=== PATIENT | female | born 1960 | race Caucasian/White ===

== ENCOUNTER 2021-06-17 15:29 | Inpatient (IN) | payer MEDICARE, MEDICAID ==
[~2021-06-17] VITALS: Ht 170.2 cm; Wt 117.0 kg
[2021-06-17 16:35] VITALS: BP 152/85
[2021-06-17 17:09] LABS: BASO % 0.2 % (0.0-1.0); EOS # 0.2 10^3/uL (0.0-0.5); EOS % 1.1 % (0.0-3.0); HEMATOCRIT 38.2 % (36.0-47.0); HEMOGLOBIN 12.4 g/dl (12.0-15.5); LYMPH % 12.7 % (24.0-44.0); MEAN CORPUSCULAR HEMOGLOBIN 27.9 pg (27.0-33.0); MEAN CORPUSCULAR HGB CONC 32.5 g/dl (32.0-36.5); MEAN CORPUSCULAR VOLUME 85.8 fl (80.0-96.0); MONO % 6.2 % (2.0-8.0); NEUTROPHILS # 12.7 10^3/uL (1.5-8.5); NEUTROPHILS % 78.9 % (36.0-66.0); PLATELET COUNT, AUTOMATED 392 10^3/uL (150-450); RED BLOOD COUNT 4.45 10^6/uL (4.00-5.40); WHITE BLOOD COUNT 16.1 10^3/uL (4.0-10.0)
[2021-06-17 17:13] LABS: INR 1.01; PROTHROMBIN TIME 13.7 SECONDS (12.7-14.5)
[2021-06-17 17:20] LABS: ALBUMIN 3.1 GM/DL (3.2-5.2); BILIRUBIN,TOTAL 0.7 MG/DL (0.2-1.0); CALCIUM LEVEL 9.6 MG/DL (8.8-10.2); CREATININE FOR GFR 1.62 MG/DL (0.55-1.30); GLOMERULAR FILTRATION RATE 34.5 (>45); POTASSIUM SERUM 4.7 MEQ/L (3.5-5.1); TOTAL PROTEIN 7.4 GM/DL (6.4-8.2)
[2021-06-17] MEDS ORDERED: GLUCAGON INJ 1MG VIAL SC PRN (17:30)
[2021-06-17] MEDS: INSULIN LISPRO (NovoLOG) PER UNIT SC SCH ×2 (17:30→20:26)
[2021-06-17] MEDS ORDERED: VANCOMYCIN HCL 1,000 MG, VIAL MATE ADAPTER 1 EACH in NS 250 ML IV SCH (17:30)
[2021-06-17] MEDS ORDERED: DEXTROSE 50% 50 ML SYRINGE IV PRN (17:30)
[2021-06-17] MEDS ORDERED: PIPERACILLIN/TAZOBACTAM SOD 3.375 GM in D5W MINI-BAG PLUS 50 ML IV SCH (17:30)
[2021-06-17] MEDS ORDERED: NS 1,000 ML IV ONE (17:30)
[2021-06-17] MEDS ORDERED: GLUCOSE 4GM CHEW TABLET PO PRN (17:30)
[2021-06-17] MEDS ORDERED: CLIN-250 PO (17:31)
[2021-06-17] MEDS ORDERED: ATOR1TAB21 PO (17:31)
[2021-06-17] MEDS ORDERED: PHEN-239 PO (17:31)
[2021-06-17] MEDS ORDERED: LISI10TA22 PO (17:31)
[2021-06-17] MEDS ORDERED: FLON1SPR NARES (17:31)
[2021-06-17] MEDS ORDERED: BYDU2INJ7 SC (17:31)
[2021-06-17] MEDS ORDERED: LEXA1TAB PO (17:31)
[2021-06-17] MEDS ORDERED: TOUJ300I2 SC (17:31)
[2021-06-17] MEDS ORDERED: GABA600T4 PO (17:31)
[2021-06-17] MEDS ORDERED: JARD1TAB3 PO (17:31)
[2021-06-17] MEDS ORDERED: LEVO100T5 PO (17:31)
[2021-06-17] MEDS ORDERED: CIPR500T39 PO (17:31)
[2021-06-17] MEDS ORDERED: HOME MED LIST COMPLETE! XX SCH (17:35)
[2021-06-17] MEDS ORDERED: INSULIN LISPRO (NovoLOG) PER UNIT SC ONE (18:30)
[2021-06-17] MEDS: MEROPENEM INJ 1 GM in IV 1 EA IV SCH (18:47)
[2021-06-17] MEDS ORDERED: traMADol 50 MG TAB PO PRN (19:40)
[2021-06-17] MEDS ORDERED: VANCOMYCIN HCL 1,000 MG, VIAL MATE ADAPTER 1 EACH in NS 250 ML IV ONE (20:00)
[2021-06-17] MEDS: traMADol 50 MG TAB PO PRN (20:13)
[2021-06-17] MEDS: DOCUSATE SODIUM 100MG CAPSULE PO SCH (20:14)
[2021-06-17] MEDS ORDERED: MICONAZOLE-7 VAGINAL 2% CREAM 47.7GM PV SCH (21:00)
[2021-06-17] MEDS ORDERED: FLUCONAZOLE 50MG TABLET PO ONE (21:00)
[2021-06-17] MEDS ORDERED: LEVEMIR (INSULIN DETEMIR) 1 UNITS/0.01ML SC SCH (21:00)
[2021-06-17] MEDS ORDERED: ENOXAPARIN 40MG/0.4ML SYRINGE (J1650 PER 10MG) SC SCH (21:00)
[2021-06-17] MEDS ORDERED: VANCOMYCIN HCL 750 MG, VIAL MATE ADAPTER 1 EACH in NS 250 ML IV ONE (21:00)
[2021-06-17] MEDS ORDERED: GABAPENTIN 300 MG CAP PO ONE (21:00)
[2021-06-17] MEDS: NYSTATIN 100,000 UNITS/GM TOPICAL PWD 15 GM TOP SCH (21:49)
[2021-06-17 22:00] VITALS: BP 141/54
[2021-06-17] MEDS: oxyCODONE 5MG TAB PO PRN (23:17)
[2021-06-18] VITALS (8 sets, daily range): BP systolic 101–124; BP diastolic 62–78
[2021-06-18] MEDS: MEROPENEM INJ 1 GM in IV 1 EA IV SCH ×3 (01:42→21:41)
[2021-06-18] MEDS: ACETAMINOPHEN TAB 650MG DOSE (2X325MG) PO PRN ×3 (01:45→21:42)
[2021-06-18] MEDS: LEVOTHYROXINE 100MCG TABLET (0.1MG) PO SCH (05:40)
[2021-06-18 08:09] LABS: BASO % 0.2 % (0.0-1.0); EOS # 0.2 10^3/uL (0.0-0.5); EOS % 1.8 % (0.0-3.0); HEMATOCRIT 35.6 % (36.0-47.0); HEMOGLOBIN 11.7 g/dl (12.0-15.5); LYMPH % 16.6 % (24.0-44.0); MEAN CORPUSCULAR HEMOGLOBIN 28.3 pg (27.0-33.0); MEAN CORPUSCULAR HGB CONC 32.9 g/dl (32.0-36.5); MONO # 0.8 10^3/uL (0.0-0.8); NEUTROPHILS # 8.9 10^3/uL (1.5-8.5); NEUTROPHILS % 73.3 % (36.0-66.0); PLATELET COUNT, AUTOMATED 312 10^3/uL (150-450); RED BLOOD COUNT 4.14 10^6/uL (4.00-5.40); WHITE BLOOD COUNT 12.1 10^3/uL (4.0-10.0)
[2021-06-18 08:44] LABS: CALCIUM LEVEL 9.1 MG/DL (8.8-10.2); CREATININE FOR GFR 1.16 MG/DL (0.55-1.30); GLOMERULAR FILTRATION RATE 50.7 (>45); POTASSIUM SERUM 3.7 MEQ/L (3.5-5.1)
[2021-06-18] MEDS: LACTOBACILLUS ACIDOPHILUS CAP (BACID) PO SCH (09:08)
[2021-06-18] MEDS: DOCUSATE SODIUM 100MG CAPSULE PO SCH ×2 (09:08→21:42)
[2021-06-18] MEDS: INSULIN LISPRO (NovoLOG) PER UNIT SC SCH ×4 (09:08→21:00)
[2021-06-18] MEDS: ATORVASTATIN 20 MG TAB PO SCH (09:08)
[2021-06-18] MEDS: ESCITALOPRAM OXALATE 10 MG TAB (LEXAPRO) PO SCH (09:08)
[2021-06-18] MEDS: VANCOMYCIN HCL 750 MG, VIAL MATE ADAPTER 1 EACH in NS 250 ML IV SCH ×2 (09:10→10:54)
[2021-06-18] MEDS: NYSTATIN 100,000 UNITS/GM TOPICAL PWD 15 GM TOP SCH ×2 (09:11→21:43)
[2021-06-18] MEDS: traMADol 50 MG TAB PO PRN (09:31)
[2021-06-18] MEDS: oxyCODONE 5MG TAB PO PRN (12:26)
[2021-06-18] MEDS ORDERED: LIDOCAINE 1% MDV 20ML VIAL As Ordered ONE (12:55)
[2021-06-18] MEDS: GABAPENTIN 300 MG CAP PO SCH ×3 (14:17→21:42)
[2021-06-18] MEDS: NS 1,000 ML IV SCH ×2 (14:19→21:42)
[2021-06-18] MEDS ORDERED: propofoL 500 MG/50 ML VIAL As Ordered ONE (16:51)
[2021-06-18] MEDS ORDERED: MIDAZOLAM INJ 2MG/2ML VIAL (J2250 PER 1MG) As Ordered ONE (16:51)
[2021-06-18] MEDS ORDERED: fentaNYL 100 MCG/2 ML INJECTION As Ordered ONE (16:51)
[2021-06-18] MEDS ORDERED: LIDOCAINE 2% 100MG/5ML SDV (FOR ANES.) As Ordered ONE (16:51)
[2021-06-18] MEDS ORDERED: LIDOCAINE 2% MDV 20ML VIAL As Ordered ONE (16:53)
[2021-06-18] MEDS ORDERED: dexameTHASONE 4 MG/ML 1ML VIAL (J1100 PER 1MG) As Ordered ONE (16:53)
[2021-06-18] MEDS ORDERED: BUPIVACAINE HCL 0.5% 10ML VIAL As Ordered ONE (16:53)
[2021-06-18] MEDS ORDERED: TOBRAMYCIN 80MG/2ML VIAL As Ordered ONE (16:53)
[2021-06-18] MEDS: SODIUM CHLORIDE 0.9% INJ 10 ML SYR IV SCH (18:00)
[2021-06-18] MEDS ORDERED: LR 1,000 ML IV SCH (19:45)
[2021-06-18] MEDS ORDERED: ONDANSETRON 4MG/2ML VIAL IV PRN (19:45)
[2021-06-18] MEDS ORDERED: oxyCODONE 5MG TAB PO PRN (19:45)
[2021-06-18 19:56] LABS: VANCOMYCIN RANDOM 14.7 UG/ML
[2021-06-18] MEDS: LEVEMIR (INSULIN DETEMIR) 1 UNITS/0.01ML SC SCH (21:43)
[2021-06-19] VITALS (7 sets, daily range): BP systolic 90–115; BP diastolic 45–68
[2021-06-19] MEDS: SODIUM CHLORIDE 0.9% INJ 10 ML SYR IV SCH ×2 (05:02→17:55)
[2021-06-19] MEDS: LEVOTHYROXINE 100MCG TABLET (0.1MG) PO SCH (05:47)
[2021-06-19] MEDS: MEROPENEM INJ 1 GM in IV 1 EA IV SCH ×3 (05:47→21:11)
[2021-06-19] MEDS: traMADol 50 MG TAB PO PRN ×2 (05:48→17:10)
[2021-06-19 07:31] LABS: BASO % 0.2 % (0.0-1.0); EOS # 0.3 10^3/uL (0.0-0.5); HEMATOCRIT 30.8 % (36.0-47.0); HEMOGLOBIN 9.9 g/dl (12.0-15.5); LYMPH # 2.3 10^3/uL (1.5-5.0); LYMPH % 17.9 % (24.0-44.0); MEAN CORPUSCULAR HEMOGLOBIN 27.4 pg (27.0-33.0); MEAN CORPUSCULAR HGB CONC 32.1 g/dl (32.0-36.5); MEAN CORPUSCULAR VOLUME 85.3 fl (80.0-96.0); MONO % 7.9 % (2.0-8.0); NEUTROPHILS % 70.9 % (36.0-66.0); PLATELET COUNT, AUTOMATED 276 10^3/uL (150-450); RED BLOOD COUNT 3.61 10^6/uL (4.00-5.40); WHITE BLOOD COUNT 12.7 10^3/uL (4.0-10.0)
[2021-06-19 07:57] LABS: CALCIUM LEVEL 8.3 MG/DL (8.8-10.2); CREATININE FOR GFR 1.2 MG/DL (0.55-1.30); GLOMERULAR FILTRATION RATE 48.8 (>45); POTASSIUM SERUM 3.7 MEQ/L (3.5-5.1)
[2021-06-19] MEDS: DOCUSATE SODIUM 100MG CAPSULE PO SCH ×2 (08:21→21:11)
[2021-06-19] MEDS: LACTOBACILLUS ACIDOPHILUS CAP (BACID) PO SCH (08:21)
[2021-06-19] MEDS: GABAPENTIN 300 MG CAP PO SCH ×4 (08:21→21:11)
[2021-06-19] MEDS: ATORVASTATIN 20 MG TAB PO SCH (08:22)
[2021-06-19] MEDS: VANCOMYCIN HCL 750 MG, VIAL MATE ADAPTER 1 EACH in NS 250 ML IV SCH ×2 (08:22→11:41)
[2021-06-19] MEDS: ESCITALOPRAM OXALATE 10 MG TAB (LEXAPRO) PO SCH (08:22)
[2021-06-19] MEDS: INSULIN LISPRO (NovoLOG) PER UNIT SC SCH ×4 (08:24→20:46)
[2021-06-19] MEDS: ACETAMINOPHEN TAB 650MG DOSE (2X325MG) PO PRN ×2 (08:25→19:30)
[2021-06-19] MEDS: NYSTATIN 100,000 UNITS/GM TOPICAL PWD 15 GM TOP SCH ×2 (11:42→21:12)
[2021-06-19] MEDS: SODIUM CHLORIDE 0.9% INJ 10 ML SYR IV PRN ×2 (14:11→17:11)
[2021-06-19] MEDS: oxyCODONE 5MG TAB PO PRN (19:30)
[2021-06-19] MEDS: LEVEMIR (INSULIN DETEMIR) 1 UNITS/0.01ML SC SCH (21:11)
[2021-06-20] MEDS: traMADol 50 MG TAB PO PRN ×3 (02:36→21:17)
[2021-06-20] MEDS: MEROPENEM INJ 1 GM in IV 1 EA IV SCH ×3 (05:34→22:52)
[2021-06-20] MEDS: LEVOTHYROXINE 100MCG TABLET (0.1MG) PO SCH (05:34)
[2021-06-20] MEDS: SODIUM CHLORIDE 0.9% INJ 10 ML SYR IV SCH ×3 (05:36→17:45)
[2021-06-20 06:16] VITALS: BP 90/48
[2021-06-20 06:24] VITALS: BP 118/60
[2021-06-20 06:32] LABS: BASO % 0.3 % (0.0-1.0); EOS # 0.3 10^3/uL (0.0-0.5); EOS % 2.7 % (0.0-3.0); HEMATOCRIT 32.1 % (36.0-47.0); HEMOGLOBIN 10.2 g/dl (12.0-15.5); LYMPH # 3.3 10^3/uL (1.5-5.0); LYMPH % 28.3 % (24.0-44.0); MEAN CORPUSCULAR HEMOGLOBIN 27.8 pg (27.0-33.0); MEAN CORPUSCULAR HGB CONC 31.8 g/dl (32.0-36.5); MEAN CORPUSCULAR VOLUME 87.5 fl (80.0-96.0); MONO # 0.8 10^3/uL (0.0-0.8); MONO % 7.1 % (2.0-8.0); NEUTROPHILS % 60.3 % (36.0-66.0); PLATELET COUNT, AUTOMATED 287 10^3/uL (150-450); RED BLOOD COUNT 3.67 10^6/uL (4.00-5.40); WHITE BLOOD COUNT 11.7 10^3/uL (4.0-10.0)
[2021-06-20 06:53] LABS: BLOOD UREA NITROGEN 12 MG/DL (7-18); CALCIUM LEVEL 8.4 MG/DL (8.8-10.2); CARBON DIOXIDE LEVEL 24 MEQ/L (21-32); CHLORIDE LEVEL 107 MEQ/L (98-107); CREATININE FOR GFR 0.96 MG/DL (0.55-1.30); GLOMERULAR FILTRATION RATE > 60.0 (>45); GLUCOSE, FASTING 145 MG/DL (70-100); POTASSIUM SERUM 3.3 MEQ/L (3.5-5.1); SODIUM LEVEL 140 MEQ/L (136-145)
[2021-06-20 08:30] LABS: VANCOMYCIN RANDOM 14.4 UG/ML
[2021-06-20] MEDS ORDERED: POTASSIUM CHLORIDE 10MEQ SR TABLET PO ONE (08:30)
[2021-06-20] MEDS: DOCUSATE SODIUM 100MG CAPSULE PO SCH ×2 (09:04→21:16)
[2021-06-20] MEDS: ESCITALOPRAM OXALATE 10 MG TAB (LEXAPRO) PO SCH (09:04)
[2021-06-20] MEDS: LACTOBACILLUS ACIDOPHILUS CAP (BACID) PO SCH (09:04)
[2021-06-20] MEDS: GABAPENTIN 300 MG CAP PO SCH ×4 (09:05→21:16)
[2021-06-20] MEDS: ATORVASTATIN 20 MG TAB PO SCH (09:05)
[2021-06-20] MEDS: NYSTATIN 100,000 UNITS/GM TOPICAL PWD 15 GM TOP SCH ×2 (09:06→21:18)
[2021-06-20] MEDS: INSULIN LISPRO (NovoLOG) PER UNIT SC SCH ×4 (09:07→21:17)
[2021-06-20] MEDS: VANCOMYCIN HCL 1,000 MG, VIAL MATE ADAPTER 1 EACH in NS 250 ML IV SCH ×2 (09:17→21:18)
[2021-06-20] MEDS: SODIUM CHLORIDE 0.9% INJ 10 ML SYR IV PRN ×3 (10:57→17:34)
[2021-06-20 14:09] VITALS: BP 120/72
[2021-06-20] MEDS: oxyCODONE 5MG TAB PO PRN (15:14)
[2021-06-20] MEDS: ACETAMINOPHEN TAB 650MG DOSE (2X325MG) PO PRN (17:13)
[2021-06-20 20:44] VITALS: BP 123/95
[2021-06-20] MEDS ORDERED: FLUCONAZOLE 50MG TABLET PO ONE (21:00)
[2021-06-20] MEDS: LEVEMIR (INSULIN DETEMIR) 1 UNITS/0.01ML SC SCH (21:18)
[2021-06-21] MEDS: MEROPENEM INJ 1 GM in IV 1 EA IV SCH ×3 (05:04→21:59)
[2021-06-21] MEDS: LEVOTHYROXINE 100MCG TABLET (0.1MG) PO SCH (05:59)
[2021-06-21] MEDS: SODIUM CHLORIDE 0.9% INJ 10 ML SYR IV SCH ×2 (06:00→16:50)
[2021-06-21 06:12] VITALS: BP 129/67
[2021-06-21 06:28] LABS: BASO % 0.4 % (0.0-1.0); EOS # 0.3 10^3/uL (0.0-0.5); EOS % 2.8 % (0.0-3.0); HEMATOCRIT 31.4 % (36.0-47.0); HEMOGLOBIN 9.8 g/dl (12.0-15.5); LYMPH # 2.8 10^3/uL (1.5-5.0); LYMPH % 29.8 % (24.0-44.0); MEAN CORPUSCULAR HEMOGLOBIN 27.6 pg (27.0-33.0); MEAN CORPUSCULAR HGB CONC 31.2 g/dl (32.0-36.5); MEAN CORPUSCULAR VOLUME 88.5 fl (80.0-96.0); MONO # 0.6 10^3/uL (0.0-0.8); MONO % 6.2 % (2.0-8.0); NEUTROPHILS # 5.7 10^3/uL (1.5-8.5); NEUTROPHILS % 59.4 % (36.0-66.0); PLATELET COUNT, AUTOMATED 299 10^3/uL (150-450); RED BLOOD COUNT 3.55 10^6/uL (4.00-5.40); WHITE BLOOD COUNT 9.5 10^3/uL (4.0-10.0)
[2021-06-21 06:53] LABS: BLOOD UREA NITROGEN 9 MG/DL (7-18); C REACTIVE PROTEIN QUANTITATIV 7.24 MG/DL (0.00-0.30); CALCIUM LEVEL 7.9 MG/DL (8.8-10.2); CARBON DIOXIDE LEVEL 28 MEQ/L (21-32); CHLORIDE LEVEL 111 MEQ/L (98-107); CREATININE FOR GFR 0.87 MG/DL (0.55-1.30); GLOMERULAR FILTRATION RATE > 60.0 (>45); GLUCOSE, FASTING 169 MG/DL (70-100); SODIUM LEVEL 144 MEQ/L (136-145)
[2021-06-21] MEDS: ATORVASTATIN 20 MG TAB PO SCH (08:13)
[2021-06-21] MEDS: ESCITALOPRAM OXALATE 10 MG TAB (LEXAPRO) PO SCH (08:14)
[2021-06-21] MEDS: LACTOBACILLUS ACIDOPHILUS CAP (BACID) PO SCH (08:14)
[2021-06-21] MEDS: NYSTATIN 100,000 UNITS/GM TOPICAL PWD 15 GM TOP SCH ×2 (08:14→21:58)
[2021-06-21] MEDS: DOCUSATE SODIUM 100MG CAPSULE PO SCH ×2 (08:44→21:59)
[2021-06-21] MEDS: GABAPENTIN 300 MG CAP PO SCH ×4 (08:44→21:59)
[2021-06-21] MEDS: INSULIN LISPRO (NovoLOG) PER UNIT SC SCH ×4 (08:45→21:00)
[2021-06-21] MEDS: LEVEMIR (INSULIN DETEMIR) 1 UNITS/0.01ML SC SCH ×2 (08:46→21:57)
[2021-06-21 09:34] VITALS: BP 130/60
[2021-06-21] MEDS: traMADol 50 MG TAB PO PRN (09:49)
[2021-06-21] MEDS: VANCOMYCIN HCL 1,000 MG, VIAL MATE ADAPTER 1 EACH in NS 250 ML IV SCH (13:15)
[2021-06-21 14:24] VITALS: BP 116/60
[2021-06-21] MEDS: SODIUM CHLORIDE 0.9% INJ 10 ML SYR IV PRN (15:20)
[2021-06-21] MEDS: ACETAMINOPHEN TAB 650MG DOSE (2X325MG) PO PRN (16:46)
[2021-06-21] MEDS ORDERED: CALCIUM CARBONATE 500 MG CHEW U/D PO PRN (18:10)
[2021-06-21] MEDS: PANTOPRAZOLE 40MG TAB (PROTONIX) PO SCH (21:59)
[2021-06-21 22:00] VITALS: BP 115/61
[2021-06-22] MEDS: VANCOMYCIN HCL 1,000 MG, VIAL MATE ADAPTER 1 EACH in NS 250 ML IV SCH (02:17)
[2021-06-22] MEDS: MEROPENEM INJ 1 GM in IV 1 EA IV SCH ×3 (05:53→21:29)
[2021-06-22] MEDS: LEVOTHYROXINE 100MCG TABLET (0.1MG) PO SCH (05:53)
[2021-06-22] MEDS: SODIUM CHLORIDE 0.9% INJ 10 ML SYR IV SCH ×2 (05:55→17:12)
[2021-06-22 06:00] VITALS: BP 116/65
[2021-06-22 07:05] LABS: BASO % 0.4 % (0.0-1.0); EOS # 0.3 10^3/uL (0.0-0.5); EOS % 2.5 % (0.0-3.0); HEMATOCRIT 33.7 % (36.0-47.0); HEMOGLOBIN 10.4 g/dl (12.0-15.5); LYMPH # 3.9 10^3/uL (1.5-5.0); LYMPH % 34.7 % (24.0-44.0); MEAN CORPUSCULAR HEMOGLOBIN 27.1 pg (27.0-33.0); MEAN CORPUSCULAR HGB CONC 30.9 g/dl (32.0-36.5); MEAN CORPUSCULAR VOLUME 87.8 fl (80.0-96.0); MONO # 0.7 10^3/uL (0.0-0.8); MONO % 6.6 % (2.0-8.0); PLATELET COUNT, AUTOMATED 385 10^3/uL (150-450); RED BLOOD COUNT 3.84 10^6/uL (4.00-5.40); WHITE BLOOD COUNT 11.1 10^3/uL (4.0-10.0)
[2021-06-22 07:25] LABS: BLOOD UREA NITROGEN 6 MG/DL (7-18); C REACTIVE PROTEIN QUANTITATIV 5.04 MG/DL (0.00-0.30); CALCIUM LEVEL 8.5 MG/DL (8.8-10.2); CARBON DIOXIDE LEVEL 26 MEQ/L (21-32); CHLORIDE LEVEL 110 MEQ/L (98-107); CREATININE FOR GFR 0.84 MG/DL (0.55-1.30); GLOMERULAR FILTRATION RATE > 60.0 (>45); GLUCOSE, FASTING 88 MG/DL (70-100); SODIUM LEVEL 142 MEQ/L (136-145)
[2021-06-22] MEDS: INSULIN LISPRO (NovoLOG) PER UNIT SC SCH ×4 (07:30→21:28)
[2021-06-22] MEDS: LACTOBACILLUS ACIDOPHILUS CAP (BACID) PO SCH (08:23)
[2021-06-22] MEDS: DOCUSATE SODIUM 100MG CAPSULE PO SCH ×2 (08:23→21:00)
[2021-06-22] MEDS: GABAPENTIN 300 MG CAP PO SCH ×4 (08:23→21:29)
[2021-06-22] MEDS: ESCITALOPRAM OXALATE 10 MG TAB (LEXAPRO) PO SCH (08:24)
[2021-06-22] MEDS: NYSTATIN 100,000 UNITS/GM TOPICAL PWD 15 GM TOP SCH ×2 (08:24→21:29)
[2021-06-22] MEDS: ATORVASTATIN 20 MG TAB PO SCH (08:24)
[2021-06-22] MEDS: LEVEMIR (INSULIN DETEMIR) 1 UNITS/0.01ML SC SCH ×2 (08:48→21:28)
[2021-06-22] MEDS ORDERED: FLUCONAZOLE 50MG TABLET PO SCH (09:00)
[2021-06-22] MEDS ORDERED: VANCOMYCIN HCL 750 MG, VIAL MATE ADAPTER 1 EACH in NS 250 ML IV SCH (13:00)
[2021-06-22 14:00] VITALS: BP 106/56
[2021-06-22] MEDS: oxyCODONE 5MG TAB PO PRN ×2 (15:11→21:29)
[2021-06-22] MEDS: VANCOMYCIN HCL 750 MG, VIAL MATE ADAPTER 1 EACH in NS 250 ML IV SCH (15:37)
[2021-06-22] MEDS: PANTOPRAZOLE 40MG TAB (PROTONIX) PO SCH (21:28)
[2021-06-22 21:58] VITALS: BP 122/52
[2021-06-23] MEDS: oxyCODONE 5MG TAB PO PRN (03:33)
[2021-06-23] MEDS: VANCOMYCIN HCL 750 MG, VIAL MATE ADAPTER 1 EACH in NS 250 ML IV SCH ×2 (03:33→14:51)
[2021-06-23] MEDS: MEROPENEM INJ 1 GM in IV 1 EA IV SCH ×2 (05:42→13:03)
[2021-06-23] MEDS: LEVOTHYROXINE 100MCG TABLET (0.1MG) PO SCH (05:42)
[2021-06-23] MEDS: SODIUM CHLORIDE 0.9% INJ 10 ML SYR IV SCH ×2 (05:43→17:29)
[2021-06-23 05:59] LABS: BASO % 0.4 % (0.0-1.0); EOS # 0.2 10^3/uL (0.0-0.5); EOS % 2.4 % (0.0-3.0); HEMATOCRIT 31.7 % (36.0-47.0); MEAN CORPUSCULAR HEMOGLOBIN 27.8 pg (27.0-33.0); MEAN CORPUSCULAR HGB CONC 31.5 g/dl (32.0-36.5); MEAN CORPUSCULAR VOLUME 88.1 fl (80.0-96.0); MONO # 0.6 10^3/uL (0.0-0.8); MONO % 6.6 % (2.0-8.0); NEUTROPHILS # 5.6 10^3/uL (1.5-8.5); NEUTROPHILS % 58.2 % (36.0-66.0); PLATELET COUNT, AUTOMATED 339 10^3/uL (150-450); WHITE BLOOD COUNT 9.6 10^3/uL (4.0-10.0)
[2021-06-23 06:00] VITALS: BP 132/78
[2021-06-23 06:36] LABS: C REACTIVE PROTEIN QUANTITATIV 3.94 MG/DL (0.00-0.30); CALCIUM LEVEL 8.2 MG/DL (8.8-10.2); CREATININE FOR GFR 1.01 MG/DL (0.55-1.30); GLOMERULAR FILTRATION RATE 59.5 (>45); POTASSIUM SERUM 4.4 MEQ/L (3.5-5.1)
[2021-06-23] MEDS: LACTOBACILLUS ACIDOPHILUS CAP (BACID) PO SCH (08:30)
[2021-06-23] MEDS: LEVEMIR (INSULIN DETEMIR) 1 UNITS/0.01ML SC SCH ×2 (08:31→21:16)
[2021-06-23] MEDS: DOCUSATE SODIUM 100MG CAPSULE PO SCH ×2 (08:31→21:17)
[2021-06-23] MEDS: ATORVASTATIN 20 MG TAB PO SCH (08:32)
[2021-06-23] MEDS: GABAPENTIN 300 MG CAP PO SCH ×4 (08:32→21:17)
[2021-06-23] MEDS: ESCITALOPRAM OXALATE 10 MG TAB (LEXAPRO) PO SCH (08:32)
[2021-06-23] MEDS: INSULIN LISPRO (NovoLOG) PER UNIT SC SCH ×4 (08:32→21:00)
[2021-06-23] MEDS: FLUCONAZOLE 100 MG TAB PO SCH (08:32)
[2021-06-23] MEDS: NYSTATIN 100,000 UNITS/GM TOPICAL PWD 15 GM TOP SCH ×2 (08:33→21:19)
[2021-06-23] MEDS: traMADol 50 MG TAB PO PRN ×2 (08:46→17:40)
[2021-06-23 14:00] VITALS: BP 113/50
[2021-06-23 20:45] VITALS: BP 113/52
[2021-06-23] MEDS: PANTOPRAZOLE 40MG TAB (PROTONIX) PO SCH (21:16)
[2021-06-24] MEDS: VANCOMYCIN HCL 750 MG, VIAL MATE ADAPTER 1 EACH in NS 250 ML IV SCH ×2 (03:21→15:18)
[2021-06-24 06:02] VITALS: BP 116/57
[2021-06-24 06:15] LABS: BASO % 0.4 % (0.0-1.0); EOS # 0.3 10^3/uL (0.0-0.5); EOS % 2.7 % (0.0-3.0); HEMATOCRIT 32.3 % (36.0-47.0); HEMOGLOBIN 10.3 g/dl (12.0-15.5); LYMPH # 3.1 10^3/uL (1.5-5.0); LYMPH % 33.4 % (24.0-44.0); MEAN CORPUSCULAR HGB CONC 31.9 g/dl (32.0-36.5); MEAN CORPUSCULAR VOLUME 87.8 fl (80.0-96.0); MONO # 0.7 10^3/uL (0.0-0.8); MONO % 7.1 % (2.0-8.0); NEUTROPHILS % 54.4 % (36.0-66.0); PLATELET COUNT, AUTOMATED 368 10^3/uL (150-450); RED BLOOD COUNT 3.68 10^6/uL (4.00-5.40); WHITE BLOOD COUNT 9.1 10^3/uL (4.0-10.0)
[2021-06-24 06:24] LABS: BLOOD UREA NITROGEN 7 MG/DL (7-18); C REACTIVE PROTEIN QUANTITATIV 3.62 MG/DL (0.00-0.30); CALCIUM LEVEL 8.5 MG/DL (8.8-10.2); CARBON DIOXIDE LEVEL 31 MEQ/L (21-32); CHLORIDE LEVEL 107 MEQ/L (98-107); CREATININE FOR GFR 0.99 MG/DL (0.55-1.30); GLOMERULAR FILTRATION RATE > 60.0 (>45); GLUCOSE, FASTING 101 MG/DL (70-100); SODIUM LEVEL 144 MEQ/L (136-145)
[2021-06-24] MEDS: SODIUM CHLORIDE 0.9% INJ 10 ML SYR IV SCH ×2 (06:38→16:48)
[2021-06-24] MEDS: LEVOTHYROXINE 100MCG TABLET (0.1MG) PO SCH (06:38)
[2021-06-24] MEDS: oxyCODONE 5MG TAB PO PRN ×3 (06:49→21:02)
[2021-06-24] MEDS: INSULIN LISPRO (NovoLOG) PER UNIT SC SCH ×4 (07:30→21:00)
[2021-06-24 08:11] VITALS: BP 144/70
[2021-06-24] MEDS: DOCUSATE SODIUM 100MG CAPSULE PO SCH ×2 (08:36→21:01)
[2021-06-24] MEDS: GABAPENTIN 300 MG CAP PO SCH ×4 (08:37→21:02)
[2021-06-24] MEDS: ATORVASTATIN 20 MG TAB PO SCH (08:39)
[2021-06-24] MEDS: FLUCONAZOLE 100 MG TAB PO SCH (08:43)
[2021-06-24] MEDS: NYSTATIN 100,000 UNITS/GM TOPICAL PWD 15 GM TOP SCH ×2 (08:50→21:01)
[2021-06-24] MEDS: LEVEMIR (INSULIN DETEMIR) 1 UNITS/0.01ML SC SCH ×2 (09:00→21:32)
[2021-06-24] MEDS: ESCITALOPRAM OXALATE 10 MG TAB (LEXAPRO) PO SCH (09:14)
[2021-06-24 09:21] VITALS: BP 144/70
[2021-06-24] MEDS: LACTOBACILLUS ACIDOPHILUS CAP (BACID) PO SCH (09:29)
[2021-06-24 14:00] VITALS: BP 133/62
[2021-06-24] MEDS: ACETAMINOPHEN TAB 650MG DOSE (2X325MG) PO PRN ×2 (18:28→21:01)
[2021-06-24] MEDS: PANTOPRAZOLE 40MG TAB (PROTONIX) PO SCH (21:02)
[2021-06-24 22:00] VITALS: BP 120/58
[2021-06-25] MEDS: VANCOMYCIN HCL 750 MG, VIAL MATE ADAPTER 1 EACH in NS 250 ML IV SCH ×2 (02:53→15:13)
[2021-06-25 06:00] VITALS: BP 139/70
[2021-06-25] MEDS: LEVOTHYROXINE 100MCG TABLET (0.1MG) PO SCH (06:14)
[2021-06-25] MEDS: SODIUM CHLORIDE 0.9% INJ 10 ML SYR IV SCH ×2 (06:14→16:49)
[2021-06-25 08:05] LABS: HEMATOCRIT 31.2 % (36.0-47.0); MEAN CORPUSCULAR HEMOGLOBIN 28.1 pg (27.0-33.0); MEAN CORPUSCULAR HGB CONC 32.1 g/dl (32.0-36.5); MEAN CORPUSCULAR VOLUME 87.6 fl (80.0-96.0); PLATELET COUNT, AUTOMATED 359 10^3/uL (150-450); RED BLOOD COUNT 3.56 10^6/uL (4.00-5.40); WHITE BLOOD COUNT 8.1 10^3/uL (4.0-10.0)
[2021-06-25] MEDS: ESCITALOPRAM OXALATE 10 MG TAB (LEXAPRO) PO SCH (08:13)
[2021-06-25] MEDS: GABAPENTIN 300 MG CAP PO SCH ×4 (08:15→20:39)
[2021-06-25] MEDS: LACTOBACILLUS ACIDOPHILUS CAP (BACID) PO SCH (08:15)
[2021-06-25] MEDS: ATORVASTATIN 20 MG TAB PO SCH (08:17)
[2021-06-25] MEDS: DOCUSATE SODIUM 100MG CAPSULE PO SCH ×2 (08:17→20:39)
[2021-06-25] MEDS: INSULIN LISPRO (NovoLOG) PER UNIT SC SCH ×4 (08:20→20:41)
[2021-06-25] MEDS: LEVEMIR (INSULIN DETEMIR) 1 UNITS/0.01ML SC SCH ×2 (08:21→20:41)
[2021-06-25 08:28] LABS: BLOOD UREA NITROGEN 8 MG/DL (7-18); CALCIUM LEVEL 8.3 MG/DL (8.8-10.2); CARBON DIOXIDE LEVEL 33 MEQ/L (21-32); CHLORIDE LEVEL 105 MEQ/L (98-107); CREATININE FOR GFR 0.97 MG/DL (0.55-1.30); GLOMERULAR FILTRATION RATE > 60.0 (>45); GLUCOSE, FASTING 103 MG/DL (70-100); POTASSIUM SERUM 3.7 MEQ/L (3.5-5.1); SODIUM LEVEL 142 MEQ/L (136-145)
[2021-06-25] MEDS: FLUCONAZOLE 100 MG TAB PO SCH (08:28)
[2021-06-25] MEDS: NYSTATIN 100,000 UNITS/GM TOPICAL PWD 15 GM TOP SCH ×2 (10:35→20:42)
[2021-06-25] MEDS: traMADol 50 MG TAB PO PRN ×2 (12:35→20:40)
[2021-06-25] MEDS: ACETAMINOPHEN TAB 650MG DOSE (2X325MG) PO PRN (12:36)
[2021-06-25 14:00] VITALS: BP 133/67
[2021-06-25] MEDS: PANTOPRAZOLE 40MG TAB (PROTONIX) PO SCH (20:40)
[2021-06-25 22:00] VITALS: BP 136/63
[2021-06-26] MEDS: VANCOMYCIN HCL 750 MG, VIAL MATE ADAPTER 1 EACH in NS 250 ML IV SCH (03:21)
[2021-06-26] MEDS: LEVOTHYROXINE 100MCG TABLET (0.1MG) PO SCH (05:08)
[2021-06-26] MEDS: SODIUM CHLORIDE 0.9% INJ 10 ML SYR IV SCH ×2 (05:08→17:09)
[2021-06-26 06:00] VITALS: BP 133/63
[2021-06-26 06:21] LABS: HEMATOCRIT 31.6 % (36.0-47.0); HEMOGLOBIN 10.1 g/dl (12.0-15.5); MEAN CORPUSCULAR HEMOGLOBIN 27.7 pg (27.0-33.0); MEAN CORPUSCULAR VOLUME 86.6 fl (80.0-96.0); PLATELET COUNT, AUTOMATED 400 10^3/uL (150-450); RED BLOOD COUNT 3.65 10^6/uL (4.00-5.40)
[2021-06-26 06:46] LABS: CALCIUM LEVEL 8.4 MG/DL (8.8-10.2); CREATININE FOR GFR 1.01 MG/DL (0.55-1.30); GLOMERULAR FILTRATION RATE 59.5 (>45); POTASSIUM SERUM 4.1 MEQ/L (3.5-5.1)
[2021-06-26] MEDS: ATORVASTATIN 20 MG TAB PO SCH (07:42)
[2021-06-26] MEDS: ESCITALOPRAM OXALATE 10 MG TAB (LEXAPRO) PO SCH (07:42)
[2021-06-26] MEDS: GABAPENTIN 300 MG CAP PO SCH ×4 (07:43→20:58)
[2021-06-26] MEDS: FLUCONAZOLE 100 MG TAB PO SCH (07:43)
[2021-06-26] MEDS: DOCUSATE SODIUM 100MG CAPSULE PO SCH ×2 (07:44→20:58)
[2021-06-26] MEDS: LEVEMIR (INSULIN DETEMIR) 1 UNITS/0.01ML SC SCH ×2 (07:44→20:58)
[2021-06-26] MEDS: LACTOBACILLUS ACIDOPHILUS CAP (BACID) PO SCH (07:44)
[2021-06-26] MEDS: INSULIN LISPRO (NovoLOG) PER UNIT SC SCH ×4 (07:45→20:59)
[2021-06-26] MEDS: NYSTATIN 100,000 UNITS/GM TOPICAL PWD 15 GM TOP SCH ×2 (07:50→20:59)
[2021-06-26 08:02] LABS: C REACTIVE PROTEIN QUANTITATIV 1.93 MG/DL (0.00-0.30)
[2021-06-26] MEDS: ACETAMINOPHEN TAB 650MG DOSE (2X325MG) PO PRN ×2 (09:24→17:05)
[2021-06-26] MEDS: traMADol 50 MG TAB PO PRN (09:24)
[2021-06-26 14:00] VITALS: BP 147/73
[2021-06-26] MEDS: oxyCODONE 5MG TAB PO PRN (15:27)
[2021-06-26 16:00] VITALS: BP 137/74
[2021-06-26 20:11] VITALS: BP 136/73
[2021-06-26] MEDS: LINEZOLID 600MG TABLET (ZYVOX) PO SCH (20:58)
[2021-06-26] MEDS: PANTOPRAZOLE 40MG TAB (PROTONIX) PO SCH (20:58)
[2021-06-27] MEDS: SODIUM CHLORIDE 0.9% INJ 10 ML SYR IV SCH ×2 (05:51→17:40)
[2021-06-27] MEDS: LEVOTHYROXINE 100MCG TABLET (0.1MG) PO SCH (05:51)
[2021-06-27 06:00] VITALS: BP 129/72
[2021-06-27 06:48] LABS: HEMATOCRIT 32.8 % (36.0-47.0); HEMOGLOBIN 10.2 g/dl (12.0-15.5); MEAN CORPUSCULAR HEMOGLOBIN 27.6 pg (27.0-33.0); MEAN CORPUSCULAR HGB CONC 31.1 g/dl (32.0-36.5); MEAN CORPUSCULAR VOLUME 88.9 fl (80.0-96.0); PLATELET COUNT, AUTOMATED 401 10^3/uL (150-450); RED BLOOD COUNT 3.69 10^6/uL (4.00-5.40); WHITE BLOOD COUNT 8.6 10^3/uL (4.0-10.0)
[2021-06-27 07:23] LABS: CALCIUM LEVEL 8.5 MG/DL (8.8-10.2); CREATININE FOR GFR 1.04 MG/DL (0.55-1.30); GLOMERULAR FILTRATION RATE 57.5 (>45); POTASSIUM SERUM 3.9 MEQ/L (3.5-5.1)
[2021-06-27] MEDS: INSULIN LISPRO (NovoLOG) PER UNIT SC SCH ×4 (07:30→20:16)
[2021-06-27] MEDS: LEVEMIR (INSULIN DETEMIR) 1 UNITS/0.01ML SC SCH ×2 (08:02→20:33)
[2021-06-27] MEDS: GABAPENTIN 300 MG CAP PO SCH ×4 (08:13→20:33)
[2021-06-27] MEDS: DOCUSATE SODIUM 100MG CAPSULE PO SCH ×2 (08:13→20:33)
[2021-06-27] MEDS: LACTOBACILLUS ACIDOPHILUS CAP (BACID) PO SCH (08:13)
[2021-06-27] MEDS: ATORVASTATIN 20 MG TAB PO SCH (08:13)
[2021-06-27] MEDS: LINEZOLID 600MG TABLET (ZYVOX) PO SCH ×2 (08:13→20:33)
[2021-06-27] MEDS: FLUCONAZOLE 100 MG TAB PO SCH (08:14)
[2021-06-27] MEDS: NYSTATIN 100,000 UNITS/GM TOPICAL PWD 15 GM TOP SCH ×2 (08:14→20:34)
[2021-06-27] MEDS: oxyCODONE 5MG TAB PO PRN ×3 (08:30→20:33)
[2021-06-27] MEDS ORDERED: ESCITALOPRAM OXALATE 10 MG TAB (LEXAPRO) PO SCH (12:00)
[2021-06-27] MEDS: ESCITALOPRAM OXALATE 5MG TABLET (LEXAPRO) PO SCH (12:47)
[2021-06-27 15:08] VITALS: BP 124/63
[2021-06-27] MEDS: ACETAMINOPHEN TAB 650MG DOSE (2X325MG) PO PRN (16:13)
[2021-06-27] MEDS: PANTOPRAZOLE 40MG TAB (PROTONIX) PO SCH (20:33)
[2021-06-27 21:31] VITALS: BP 123/63
[2021-06-27 21:52] VITALS: BP 123/63
[2021-06-28] MEDS: LEVOTHYROXINE 100MCG TABLET (0.1MG) PO SCH (05:45)
[2021-06-28] MEDS: SODIUM CHLORIDE 0.9% INJ 10 ML SYR IV SCH ×2 (05:46→17:13)
[2021-06-28 06:00] VITALS: BP 127/71
[2021-06-28 08:18] LABS: HEMATOCRIT 32.2 % (36.0-47.0); HEMOGLOBIN 10.1 g/dl (12.0-15.5); MEAN CORPUSCULAR HEMOGLOBIN 28.2 pg (27.0-33.0); MEAN CORPUSCULAR HGB CONC 31.4 g/dl (32.0-36.5); MEAN CORPUSCULAR VOLUME 89.9 fl (80.0-96.0); PLATELET COUNT, AUTOMATED 380 10^3/uL (150-450); RED BLOOD COUNT 3.58 10^6/uL (4.00-5.40); WHITE BLOOD COUNT 8.6 10^3/uL (4.0-10.0)
[2021-06-28] MEDS: DOCUSATE SODIUM 100MG CAPSULE PO SCH ×2 (08:41→21:27)
[2021-06-28] MEDS: ATORVASTATIN 20 MG TAB PO SCH (08:41)
[2021-06-28] MEDS: LACTOBACILLUS ACIDOPHILUS CAP (BACID) PO SCH (08:41)
[2021-06-28] MEDS: ACETAMINOPHEN TAB 650MG DOSE (2X325MG) PO PRN (08:42)
[2021-06-28] MEDS: GABAPENTIN 300 MG CAP PO SCH ×4 (08:42→21:27)
[2021-06-28] MEDS: FLUCONAZOLE 100 MG TAB PO SCH (08:42)
[2021-06-28] MEDS: INSULIN LISPRO (NovoLOG) PER UNIT SC SCH ×4 (08:42→19:59)
[2021-06-28] MEDS: LINEZOLID 600MG TABLET (ZYVOX) PO SCH ×2 (08:42→21:27)
[2021-06-28 08:43] LABS: CALCIUM LEVEL 8.6 MG/DL (8.8-10.2); CREATININE FOR GFR 1.2 MG/DL (0.55-1.30); GLOMERULAR FILTRATION RATE 48.8 (>45); POTASSIUM SERUM 4.2 MEQ/L (3.5-5.1)
[2021-06-28] MEDS: NYSTATIN 100,000 UNITS/GM TOPICAL PWD 15 GM TOP SCH ×2 (08:43→21:28)
[2021-06-28] MEDS: LEVEMIR (INSULIN DETEMIR) 1 UNITS/0.01ML SC SCH ×2 (08:43→21:28)
[2021-06-28] MEDS: ESCITALOPRAM OXALATE 5MG TABLET (LEXAPRO) PO SCH (12:44)
[2021-06-28 14:00] VITALS: BP 131/77
[2021-06-28] MEDS: oxyCODONE 5MG TAB PO PRN (16:38)
[2021-06-28] MEDS: PANTOPRAZOLE 40MG TAB (PROTONIX) PO SCH (21:27)
[2021-06-28 22:00] VITALS: BP 131/70
[2021-06-29] MEDS: LEVOTHYROXINE 100MCG TABLET (0.1MG) PO SCH (05:50)
[2021-06-29] MEDS: SODIUM CHLORIDE 0.9% INJ 10 ML SYR IV SCH ×2 (05:51→17:10)
[2021-06-29] MEDS: oxyCODONE 5MG TAB PO PRN ×2 (05:51→17:12)
[2021-06-29 06:00] VITALS: BP 131/68
[2021-06-29] MEDS: ATORVASTATIN 20 MG TAB PO SCH (07:57)
[2021-06-29] MEDS: LACTOBACILLUS ACIDOPHILUS CAP (BACID) PO SCH (07:57)
[2021-06-29] MEDS: FLUCONAZOLE 100 MG TAB PO SCH (07:57)
[2021-06-29] MEDS: DOCUSATE SODIUM 100MG CAPSULE PO SCH ×2 (07:57→20:14)
[2021-06-29] MEDS: GABAPENTIN 300 MG CAP PO SCH ×4 (07:57→20:14)
[2021-06-29] MEDS: INSULIN LISPRO (NovoLOG) PER UNIT SC SCH ×4 (07:58→20:15)
[2021-06-29] MEDS: LEVEMIR (INSULIN DETEMIR) 1 UNITS/0.01ML SC SCH ×2 (07:58→20:15)
[2021-06-29] MEDS: LINEZOLID 600MG TABLET (ZYVOX) PO SCH ×2 (07:58→20:14)
[2021-06-29] MEDS: NYSTATIN 100,000 UNITS/GM TOPICAL PWD 15 GM TOP SCH ×2 (07:59→20:15)
[2021-06-29 08:46] LABS: HEMATOCRIT 31.3 % (36.0-47.0); HEMOGLOBIN 9.8 g/dl (12.0-15.5); MEAN CORPUSCULAR HEMOGLOBIN 28.2 pg (27.0-33.0); MEAN CORPUSCULAR HGB CONC 31.3 g/dl (32.0-36.5); MEAN CORPUSCULAR VOLUME 90.2 fl (80.0-96.0); PLATELET COUNT, AUTOMATED 383 10^3/uL (150-450); RED BLOOD COUNT 3.47 10^6/uL (4.00-5.40); WHITE BLOOD COUNT 9.5 10^3/uL (4.0-10.0)
[2021-06-29 09:06] LABS: CALCIUM LEVEL 9.1 MG/DL (8.8-10.2); CREATININE FOR GFR 1.28 MG/DL (0.55-1.30); GLOMERULAR FILTRATION RATE 45.3 (>45); POTASSIUM SERUM 4.1 MEQ/L (3.5-5.1)
[2021-06-29] MEDS: ESCITALOPRAM OXALATE 5MG TABLET (LEXAPRO) PO SCH (12:04)
[2021-06-29 14:00] VITALS: BP 115/87
[2021-06-29] MEDS: PANTOPRAZOLE 40MG TAB (PROTONIX) PO SCH (20:14)
[2021-06-30 06:00] VITALS: BP 121/69
[2021-06-30] MEDS: SODIUM CHLORIDE 0.9% INJ 10 ML SYR IV SCH ×2 (06:24→16:58)
[2021-06-30] MEDS: LEVOTHYROXINE 100MCG TABLET (0.1MG) PO SCH (06:24)
[2021-06-30 07:43] LABS: HEMATOCRIT 33.3 % (36.0-47.0); HEMOGLOBIN 10.4 g/dl (12.0-15.5); MEAN CORPUSCULAR HEMOGLOBIN 28.3 pg (27.0-33.0); MEAN CORPUSCULAR HGB CONC 31.2 g/dl (32.0-36.5); MEAN CORPUSCULAR VOLUME 90.5 fl (80.0-96.0); PLATELET COUNT, AUTOMATED 385 10^3/uL (150-450); RED BLOOD COUNT 3.68 10^6/uL (4.00-5.40); WHITE BLOOD COUNT 9.7 10^3/uL (4.0-10.0)
[2021-06-30 08:14] LABS: CALCIUM LEVEL 9.1 MG/DL (8.8-10.2); CREATININE FOR GFR 1.35 MG/DL (0.55-1.30); GLOMERULAR FILTRATION RATE 42.6 (>45); POTASSIUM SERUM 4.7 MEQ/L (3.5-5.1)
[2021-06-30] MEDS: INSULIN LISPRO (NovoLOG) PER UNIT SC SCH ×4 (08:34→20:44)
[2021-06-30] MEDS: LEVEMIR (INSULIN DETEMIR) 1 UNITS/0.01ML SC SCH ×2 (08:34→20:49)
[2021-06-30] MEDS: LACTOBACILLUS ACIDOPHILUS CAP (BACID) PO SCH (08:35)
[2021-06-30] MEDS: ATORVASTATIN 20 MG TAB PO SCH (08:35)
[2021-06-30] MEDS: LINEZOLID 600MG TABLET (ZYVOX) PO SCH ×2 (08:35→20:49)
[2021-06-30] MEDS: DOCUSATE SODIUM 100MG CAPSULE PO SCH ×2 (08:35→20:49)
[2021-06-30] MEDS: FLUCONAZOLE 100 MG TAB PO SCH (08:35)
[2021-06-30] MEDS: GABAPENTIN 300 MG CAP PO SCH ×4 (08:35→20:49)
[2021-06-30] MEDS: NYSTATIN 100,000 UNITS/GM TOPICAL PWD 15 GM TOP SCH ×2 (08:39→20:50)
[2021-06-30] MEDS: oxyCODONE 5MG TAB PO PRN (12:02)
[2021-06-30] MEDS: ESCITALOPRAM OXALATE 5MG TABLET (LEXAPRO) PO SCH (12:02)
[2021-06-30 14:38] LABS: C REACTIVE PROTEIN QUANTITATIV 1.92 MG/DL (0.00-0.30)
[2021-06-30 14:45] VITALS: BP 131/82
[2021-06-30 16:00] VITALS: BP 129/84
[2021-06-30] MEDS: PANTOPRAZOLE 40MG TAB (PROTONIX) PO SCH (20:49)
[2021-06-30 22:00] VITALS: BP 141/78
[2021-07-01 06:00] VITALS: BP 117/65
[2021-07-01] MEDS: SODIUM CHLORIDE 0.9% INJ 10 ML SYR IV SCH ×2 (06:00→16:31)
[2021-07-01] MEDS: LEVOTHYROXINE 100MCG TABLET (0.1MG) PO SCH (06:00)
[2021-07-01 06:13] LABS: HEMATOCRIT 31.9 % (36.0-47.0); MEAN CORPUSCULAR HEMOGLOBIN 27.7 pg (27.0-33.0); MEAN CORPUSCULAR HGB CONC 31.3 g/dl (32.0-36.5); MEAN CORPUSCULAR VOLUME 88.4 fl (80.0-96.0); PLATELET COUNT, AUTOMATED 351 10^3/uL (150-450); RED BLOOD COUNT 3.61 10^6/uL (4.00-5.40); WHITE BLOOD COUNT 9.3 10^3/uL (4.0-10.0)
[2021-07-01 06:43] LABS: CALCIUM LEVEL 9.3 MG/DL (8.8-10.2); CREATININE FOR GFR 1.31 MG/DL (0.55-1.30); GLOMERULAR FILTRATION RATE 44.1 (>45); POTASSIUM SERUM 4.5 MEQ/L (3.5-5.1)
[2021-07-01] MEDS: ATORVASTATIN 20 MG TAB PO SCH (08:29)
[2021-07-01] MEDS: LINEZOLID 600MG TABLET (ZYVOX) PO SCH ×2 (08:29→21:18)
[2021-07-01] MEDS: LACTOBACILLUS ACIDOPHILUS CAP (BACID) PO SCH (08:29)
[2021-07-01] MEDS: GABAPENTIN 300 MG CAP PO SCH ×4 (08:29→21:18)
[2021-07-01] MEDS: LEVEMIR (INSULIN DETEMIR) 1 UNITS/0.01ML SC SCH ×2 (08:29→21:18)
[2021-07-01] MEDS: INSULIN LISPRO (NovoLOG) PER UNIT SC SCH ×4 (08:29→21:17)
[2021-07-01] MEDS: FLUCONAZOLE 100 MG TAB PO SCH (08:30)
[2021-07-01] MEDS: DOCUSATE SODIUM 100MG CAPSULE PO SCH ×2 (08:30→21:18)
[2021-07-01] MEDS: NYSTATIN 100,000 UNITS/GM TOPICAL PWD 15 GM TOP SCH ×2 (08:30→21:19)
[2021-07-01] MEDS: oxyCODONE 5MG TAB PO PRN ×2 (08:35→16:30)
[2021-07-01] MEDS: ESCITALOPRAM OXALATE 5MG TABLET (LEXAPRO) PO SCH (12:24)
[2021-07-01 14:00] VITALS: BP 110/56
[2021-07-01] MEDS: PANTOPRAZOLE 40MG TAB (PROTONIX) PO SCH (21:18)
[2021-07-01] MEDS: ACETAMINOPHEN TAB 650MG DOSE (2X325MG) PO PRN (21:19)
[2021-07-01 22:00] VITALS: BP 126/63
[2021-07-02] MEDS: LEVOTHYROXINE 100MCG TABLET (0.1MG) PO SCH (05:40)
[2021-07-02] MEDS: SODIUM CHLORIDE 0.9% INJ 10 ML SYR IV SCH (05:40)
[2021-07-02 06:00] VITALS: BP 125/63
[2021-07-02 07:05] LABS: HEMOGLOBIN 10.2 g/dl (12.0-15.5); MEAN CORPUSCULAR HEMOGLOBIN 27.9 pg (27.0-33.0); MEAN CORPUSCULAR HGB CONC 30.9 g/dl (32.0-36.5); MEAN CORPUSCULAR VOLUME 90.4 fl (80.0-96.0); PLATELET COUNT, AUTOMATED 339 10^3/uL (150-450); RED BLOOD COUNT 3.65 10^6/uL (4.00-5.40); WHITE BLOOD COUNT 7.1 10^3/uL (4.0-10.0)
[2021-07-02 07:11] LABS: CALCIUM LEVEL 8.9 MG/DL (8.8-10.2); CREATININE FOR GFR 1.36 MG/DL (0.55-1.30); GLOMERULAR FILTRATION RATE 42.2 (>45); POTASSIUM SERUM 4.3 MEQ/L (3.5-5.1)
[2021-07-02] MEDS: FLUCONAZOLE 100 MG TAB PO SCH (08:08)
[2021-07-02] MEDS: LACTOBACILLUS ACIDOPHILUS CAP (BACID) PO SCH (08:08)
[2021-07-02] MEDS: ATORVASTATIN 20 MG TAB PO SCH (08:08)
[2021-07-02] MEDS: GABAPENTIN 300 MG CAP PO SCH ×4 (08:08→20:46)
[2021-07-02] MEDS: LINEZOLID 600MG TABLET (ZYVOX) PO SCH ×2 (08:09→20:46)
[2021-07-02] MEDS: LEVEMIR (INSULIN DETEMIR) 1 UNITS/0.01ML SC SCH ×2 (08:09→20:47)
[2021-07-02] MEDS: NYSTATIN 100,000 UNITS/GM TOPICAL PWD 15 GM TOP SCH ×2 (08:10→20:48)
[2021-07-02] MEDS: INSULIN LISPRO (NovoLOG) PER UNIT SC SCH ×4 (08:10→20:39)
[2021-07-02] MEDS: DOCUSATE SODIUM 100MG CAPSULE PO SCH ×2 (08:10→20:46)
[2021-07-02] MEDS ORDERED: LINE1TAB6 PO (08:54)
[2021-07-02] MEDS ORDERED: LEXA5TAB13 PO (08:54)
[2021-07-02] MEDS ORDERED: RISATAB3 PO (08:54)
[2021-07-02] MEDS ORDERED: COLA100C5 PO (08:54)
[2021-07-02] MEDS ORDERED: PANT40TA29 PO (08:54)
[2021-07-02] MEDS ORDERED: INSUHUMDS SC ×2 (08:54)
[2021-07-02] MEDS ORDERED: OXYC-517 PO (08:54)
[2021-07-02] MEDS ORDERED: CALC200T15 PO (08:54)
[2021-07-02] MEDS ORDERED: NYST10006 TOP (08:54)
[2021-07-02] MEDS ORDERED: INSUDET SC (08:54)
[2021-07-02] MEDS: oxyCODONE 5MG TAB PO PRN ×2 (13:30→20:48)
[2021-07-02 14:00] VITALS: BP 116/66
[2021-07-02] MEDS: ESCITALOPRAM OXALATE 5MG TABLET (LEXAPRO) PO SCH (15:54)
[2021-07-02] MEDS: ACETAMINOPHEN TAB 650MG DOSE (2X325MG) PO PRN (15:55)
[2021-07-02] MEDS: PANTOPRAZOLE 40MG TAB (PROTONIX) PO SCH (20:46)
[2021-07-03] MEDS: LEVOTHYROXINE 100MCG TABLET (0.1MG) PO SCH (05:06)
[2021-07-03 06:00] VITALS: BP 115/65
[2021-07-03] MEDS: INSULIN LISPRO (NovoLOG) PER UNIT SC SCH (07:30)
[2021-07-03] MEDS: LACTOBACILLUS ACIDOPHILUS CAP (BACID) PO SCH (08:04)
[2021-07-03 08:05] VITALS: BP 115/65
[2021-07-03] MEDS: FLUCONAZOLE 100 MG TAB PO SCH (08:05)
[2021-07-03] MEDS: GABAPENTIN 300 MG CAP PO SCH (08:05)
[2021-07-03] MEDS: LINEZOLID 600MG TABLET (ZYVOX) PO SCH (08:05)
[2021-07-03] MEDS: NYSTATIN 100,000 UNITS/GM TOPICAL PWD 15 GM TOP SCH (08:05)
[2021-07-03] MEDS: ATORVASTATIN 20 MG TAB PO SCH (08:05)
[2021-07-03] MEDS: DOCUSATE SODIUM 100MG CAPSULE PO SCH (08:06)
[2021-07-03] MEDS: LEVEMIR (INSULIN DETEMIR) 1 UNITS/0.01ML SC SCH (08:21)
== END 2021-07-03 08:20 | DRG 622 ==
LOC: M MS5PR 16:13
PROVIDERS: ADMIT Internal Medicine Nephrology; ATTEND Internal Medicine
PROC: 02HV33Z Insertion of Infusion Device into Superior Vena Cava, Percutaneous Approach (ICD-10-PCS; 2021-06-18)
PROC: 0KBV0ZZ Excision of Right Foot Muscle, Open Approach (ICD-10-PCS; principal; 2021-06-19)
DX: E11.621 Type 2 diabetes mellitus with foot ulcer (principal); M72.6 Necrotizing fasciitis; L02.611 Cutaneous abscess of right foot; Z68.41 Body mass index [BMI] 40.0-44.9, adult; L03.115 Cellulitis of right lower limb; L97.518 Non-pressure chronic ulcer of other part of right foot with other specified severity; E11.42 Type 2 diabetes mellitus with diabetic polyneuropathy; E66.01 Morbid (severe) obesity due to excess calories; D86.9 Sarcoidosis, unspecified; I10 Essential (primary) hypertension; E78.5 Hyperlipidemia, unspecified; E89.0 Postprocedural hypothyroidism; Z20.822 Contact with and (suspected) exposure to COVID-19; Z79.4 Long term (current) use of insulin; Z79.84 Long term (current) use of oral hypoglycemic drugs; Z79.2 Long term (current) use of antibiotics; Z79.899 Other long term (current) drug therapy; Z88.0 Allergy status to penicillin; Z88.8 Allergy status to other drugs, medicaments and biological substances; R32 Unspecified urinary incontinence; Z89.411 Acquired absence of right great toe; N17.9 Acute kidney failure, unspecified; B37.2 Candidiasis of skin and nail; E11.65 Type 2 diabetes mellitus with hyperglycemia; B95.4 Other streptococcus as the cause of diseases classified elsewhere

== ENCOUNTER → 2021-06-17 | Outpatient (REF) | payer MEDICARE, MEDICAID ==
[~2021-06-17] MED LIST: ATOR1TAB21 PO; BYDU2INJ7 SC; CIPR500T39 PO; CLIN-250 PO; FLON1SPR NARES; GABA600T4 PO; JARD1TAB3 PO; LEVO100T5 PO; LEXA1TAB PO; LISI10TA22 PO; PHEN-239 PO; TOUJ300I2 SC
== END ==
LOC: M LAB REF 15:44
PROVIDERS: ATTEND Podiatrist
DX: M79.671 Pain in right foot (principal)

== ENCOUNTER → 2021-09-02 | Outpatient (REF) | payer MEDICARE, MEDICAID ==
[~2021-09-02] MED LIST changes: +CALC200T15 PO; +COLA100C5 PO; +INSUDET SC; +INSUHUMDS SC; +LEXA5TAB13 PO; +LINE1TAB6 PO; +NYST10006 TOP; +OXYC-517 PO; +PANT40TA29 PO; +RISATAB3 PO
== END ==
LOC: M LAB REF 12:24
PROVIDERS: ATTEND Podiatrist
DX: M79.671 Pain in right foot (principal); E11.59 Type 2 diabetes mellitus with other circulatory complications; L97.512 Non-pressure chronic ulcer of other part of right foot with fat layer exposed

== ENCOUNTER → 2022-12-14 | Outpatient (REF) | payer MEDICARE, MEDICAID | LOC: M LAB REF 13:16 | PROVIDERS: ATTEND Podiatrist | DX: L03.039 Cellulitis of unspecified toe (principal) ==

== ENCOUNTER → 2023-01-26 | Outpatient (REF) | payer MEDICARE, MEDICAID | LOC: M LAB REF 16:05 | PROVIDERS: ATTEND Podiatrist | DX: L03.032 Cellulitis of left toe (principal) ==

== ENCOUNTER → 2023-03-22 | Outpatient (CLI) | payer MEDICARE, MEDICAID ==
[2023-03-22 16:03] LABS: BASO % 0.3 % (0.0-1.0); EOS % 8.7 % (0.0-3.0); HEMATOCRIT 37.4 % (36.0-47.0); HEMOGLOBIN 11.4 g/dl (12.0-15.5); LYMPH # 3.3 10^3/uL (1.5-5.0); LYMPH % 29.6 % (24.0-44.0); MEAN CORPUSCULAR HEMOGLOBIN 24.2 pg (27.0-33.0); MEAN CORPUSCULAR HGB CONC 30.5 g/dl (32.0-36.5); MEAN CORPUSCULAR VOLUME 79.4 fl (80.0-96.0); MONO # 0.6 10^3/uL (0.0-0.8); MONO % 5.7 % (2.0-8.0); NEUTROPHILS # 6.1 10^3/uL (1.5-8.5); NEUTROPHILS % 55.5 % (36.0-66.0); PLATELET COUNT, AUTOMATED 335 10^3/uL (150-450); RED BLOOD COUNT 4.71 10^6/uL (4.00-5.40)
[2023-03-22 16:08] LABS: ERYTHROCYTE SEDIMENTATION RATE 31 mm/hr (0-30)
== END ==
LOC: M PLALAB 12:40
PROVIDERS: ATTEND Internal Medicine Infectious Disease
DX: M86.9 Osteomyelitis, unspecified (principal)